=== PATIENT | female | born 2000 | race Caucasian/White ===

== ENCOUNTER 2025-03-25 10:44 | Emergency (ER) | payer OTHER, SELFPAY ==
[2025-03-25] VITALS (9 sets, daily range): BP systolic 124–140; BP diastolic 65–95; PULSE 77–100; RESP 14–24; TEMP 36.7–36.9; O2SAT 94–100
--- NOTE | ~2025-03-25 | XR_ITS ---
EXAMINATION: XR chest 1V portable COMPARISON: No comparisons available. HISTORY: drug overdose FINDINGS: The lungs are clear, no effusion. No pneumothorax. Heart is normal size. Mediastinal and hilar contours are within normal limits. Bony thorax no acute abnormality. Miscellaneous: None Impression: No acute cardiopulmonary abnormality. Reviewed, dictated and finalized at location A. Impression: No acute cardiopulmonary abnormality.
--- NOTE | 2025-03-25 10:48 | PC.NURSE ---
DENA Ji, at Poison Control contacted regarding intentional overdose. Patient took 900mg effexor xr last noc at 1800. Poison Control relayed the following information: -Patient may experience n/v, headache, fatigue, tremor, tachycardia, hypertension, seizures, AMS, agitation. -If patient is being honest about the amount and time ingested: peak would have been at 9 hours and patient would be expected to experience mild/moderate symptoms. -Suggest to perform EKG, place patient on retread builder, obtain basic labs with added tylenol/salicylate levels. -Margy to fax over information re: management of patient.
--- NOTE | 2025-03-25 10:56 | ED_ITS ---
HPI - General Adult General Chief complaint: Overdose <Hayden Vazquez MD - Last Filed: 03/25/25 18:29> Stated complaint: intentional OD <Hayden Vazquez MD - Last Filed: 03/25/25 18:29> Source: patient <Hayden Vazquez MD - Last Filed: 03/25/25 18:29> Mode of arrival: ambulatory <Hayden Vazquez MD - Last Filed: 03/25/25 18:29> Limitations: no limitations <Hayden Vazquez MD - Last Filed: 03/25/25 18:29> History of Present Illness HPI narrative: 24 years old white female came to the ED telling me that she had 6 tablet of Effexor 150 mg each at 6:00 p.m. last night. Patient was trying to in call herself, because she feels like a failure, and burden on everybody around her. Currently patient live with judi simmons, was hospitalized for suicidal ideation and depression at [facility] 2020, history of anxiety and depression, currently on testosterone, not on antidepression or antipsychotic medication. Patient currently denying any fever, chills, nausea, vomiting, abdominal pain, chest pain, shortness of breath or any other complain except feeling depressed < Hayden Vazquez MD - Last Filed: 03/25/25 18:29> Related Data Allergies/adverse reactions: Allergies Allergy/AdvReac Type Severity Reaction Status Date / Time No Known Allergies Allergy Verified 03/25/25 11:01 <Hayden Vazquez MD - Last Filed: 03/25/25 18:29> Review of Systems 2 Review of Systems: All systems reviewed & are unremarkable except as noted in HPI and below <Hayden Vazquez MD - Last Filed: 03/25/25 18:29> PMFSH Social History Social History: Social History Substance use type: marijuana <Hayden Vazquez MD - Last Filed: 03/25/25 18:29> Exam 2 Narrative: General appearance: Well-developed, well-nourished Skin: Normal color hirsutism, mostach and guardado Head: Normocephalic, nontraumatic Eyes: Clear conjunctiva, dilated pupils, reactive light and accommodation ENT: Oropharynx normal, ears normal, nose normal Neck: Supple, nontender Chest and respiratory: Airway patent, no respiratory distress, no accessory muscle use Heart: Regular rate/rhythm Abdomen: Soft, nontender, no organomegaly, quiet bowel sounds Vascular: Normal peripheral pulses, normal capillary refill. Musculoskeletal: Normal range of motion, nontender back Neurologic: Alert and oriented ?3, COMPENSATION AND BENEFITS ANALYST is normal as tested, no gross motor deficit <Hayden Vazquez MD - Last Filed: 03/25/25 18:29> Course Vital Signs Vital signs: Vital Signs Temperature 98.0 F 03/25/25 10:45 Pulse Rate 98 03/25/25 10:45 Respiratory Rate 20 03/25/25 10:45 Blood Pressure 132/95 H 03/25/25 10:45 Pulse Oximetry 98 03/25/25 10:45 Oxygen Delivery Room Air 03/25/25 10:45 Temperature 98.4 F 03/25/25 20:21 Pulse Rate 77 03/25/25 20:21 Respiratory Rate 14 03/25/25 20:21 Blood Pressure 140/65 03/25/25 20:21 Pulse Oximetry 100 03/25/25 20:21 Oxygen Delivery Room Air 03/25/25 10:57 <Hayden Vazquez MD - Last Filed: 03/25/25 18:29> Vital Signs Temperature 98.0 F 03/25/25 10:45 Pulse Rate 98 03/25/25 10:45 Respiratory Rate 20 03/25/25 10:45 Blood Pressure 132/95 H 03/25/25 10:45 Pulse Oximetry 98 03/25/25 10:45 Oxygen Delivery Room Air 03/25/25 10:45 Temperature 98.4 F 03/25/25 20:21 Pulse Rate 77 03/25/25 20:21 Respiratory Rate 14 03/25/25 20:21 Blood Pressure 140/65 03/25/25 20:21 Pulse Oximetry 100 03/25/25 20:21 Oxygen Delivery Room Air 03/25/25 10:57 <Paul Mcguire MD - Last Filed: 03/25/25 20:26> Medical Decision Making MDM Narrative Medical decision making narrative: 24 years old white female came to the ED with drug overdose, suicidal attempt Vital signs are stable Physical examination: Depressed looking patient Differential diagnosis major depression with suicidal ideation and attempt, serotonin syndrome Workup today showed hemoglobin of 16.9 otherwise insignificant abnormalities Urine drug screen positive for cannabis Urinalysis showed insignificant abnormality Chest x-ray showed no acute abnormality EKG on arrival showed normal sinus rhythm Diagnosis major depression with drug overdose Patient care turned over to Dr. Peterson at shift change, awaiting for disposition. Patient been resting quietly in the emergency room without any issues or problems. <Hayden Vazquez MD - Last Filed: 03/25/25 18:29> Differential Diagnosis Differential Diagnosis: as above <Hayden Vazquez MD - Last Filed: 03/25/25 18:29> Medical Records Medical records narrative: patient is medically cleared for psych eval <Hayden Vazquez MD - Last Filed: 03/25/25 18:29> Vital Signs Vital Signs: Vital Signs Temperature 98.0 F 03/25/25 10:45 Pulse Rate 98 03/25/25 10:45 Respiratory Rate 20 03/25/25 10:45 Blood Pressure 132/95 H 03/25/25 10:45 Pulse Oximetry 98 03/25/25 10:45 Oxygen Delivery Room Air 03/25/25 10:45 Temperature 98.4 F 03/25/25 20:21 Pulse Rate 77 03/25/25 20:21 Respiratory Rate 14 03/25/25 20:21 Blood Pressure 140/65 03/25/25 20:21 Pulse Oximetry 100 03/25/25 20:21 Oxygen Delivery Room Air 03/25/25 10:57 <Hayden Vazquez MD - Last Filed: 03/25/25 18:29> Vital Signs Temperature 98.0 F 03/25/25 10:45 Pulse Rate 98 03/25/25 10:45 Respiratory Rate 20 03/25/25 10:45 Blood Pressure 132/95 H 03/25/25 10:45 Pulse Oximetry 98 03/25/25 10:45 Oxygen Delivery Room Air 03/25/25 10:45 Temperature 98.4 F 03/25/25 20:21 Pulse Rate 77 03/25/25 20:21 Respiratory Rate 14 03/25/25 20:21 Blood Pressure 140/65 03/25/25 20:21 Pulse Oximetry 100 03/25/25 20:21 Oxygen Delivery Room Air 03/25/25 10:57 <Paul Mcguire MD - Last Filed: 03/25/25 20:26> Lab Data Result diagrams: 03/25/25 11:14 03/25/25 11:14 <Hayden Vazquez MD - Last Filed: 03/25/25 18:29> Labs: Lab Results 03/25/25 03/25/25 03/25/25 Range/Units 11:14 12:52 12:53 WBC 10.4 H (4.5-10.0) K/mm3 RBC 5.53 H (4.2-5.4) M/mm3 Hgb 16.9 H (12.0-15.0) g/dL Hct 50.3 H (37.0-47.0) % MCV 91.0 (80-100) fl MCH 30.6 (26-34) pg MCHC 33.6 (32-36) g/dl RDW 15.4 H (11.5-14.5) % Plt Count 403 H (150-375) k/mm3 MPV 8.3 (7.4-10.4) fl Immature Gran % (Auto) 0.3 (0-0.5) % Neut % (Auto) 70.6 (45.5-73.1) % Lymph % (Auto) 18.8 (18.3-44.2) % [place] % (Auto) 6.6 (2.6-8.5) % Eos % (Auto) 2.9 (0-4.4) % Baso % (Auto) 0.8 (0.2-1.2) % Lymph # (Auto) 1.96 (0.9-3.2) K/mm3 [place] # (Auto) 0.7 H (0.1-0.6) K/mm3 Eos # (Auto) 0.3 (0-0.3) K/mm3 Baso # (Auto) 0.1 (0.0-0.1) K/mm3 Abs Immat Gran (auto) 0.03 (0.00-0.031) K/mm3 Absolute Neuts (auto) 7.4 H (1.3-6.7) K/mm3 Absolute Nucleated RBC 0.000 (0.0-0.012) K/mm3 Nucleated RBC % 0.0 (0.0-0.2) % PT 16.2 H (11.1-14.7) Seconds INR 1.3 APTT 22.7 (22.3-36.8) Seconds Sodium 136 L (137-145) mmol/L Potassium 4.1 (3.4-5.0) mmol/L Chloride 102 (98-107) mmol/L Carbon Dioxide 21 L (22-30) mmol/L Anion Gap 13 H (4-12) mmol/L BUN 8 (7-17) mg/dL Creatinine 0.83 (0.7-1.0) mg/dL Estim Creat Clear Calc 92 ml/min Estimated GFR > 60 (59 - ) Glucose 83 (65-110) mg/dL Calcium 8.8 (8.4-10.2) mg/dL Phosphorus 3.0 (2.5-4.5) mg/dL Magnesium 2.0 (1.6-2.3) mg/dL Total Bilirubin 0.8 (0.2-1.3) mg/dL AST 56 H (14-36) U/L ALT 57 H (6-35) U/L Alkaline Phosphatase 110 (38-126) U/L Total Protein 8.6 H (6.3-8.2) g/dL Albumin 4.5 (3.5-5.1) g/dL TSH 1.870 (0.465-4.680) uIU/mL Urine Color Yellow (Yellow) Urine Appearance Clear (Clear) Urine pH 8.0 (5.0-9.0) Ur Specific [place] 1.024 (1.001-1.035) Urine Protein 1+ H (Negative) mg/dL Urine Glucose (UA) Negative (Negative) mg/dL Urine Ketones 1+ H (Negative) mg/dL Ur Blood (Man) Negative (Negative) Urine Nitrate Negative (Negative) Urine Bilirubin Negative (Negative) Urine Urobilinogen 2.0 H (<2.0) mg/dL Add Ur Microanalysis Reviewed Leukocyte Esterase Rfl Trace H (Negative) CYRUS/UL Urine RBC 6-10 H (0-2) /hpf Urine WBC 0-5 (0-3) /hpf Ur Squamous Epith Cells Occasional (Few) /hpf Urine Bacteria None seen /hpf Urine Casts 0-2 POC Urine HCG, Qual Negative (Negative) Salicylates < 1.0 L (2-20) mg/dL Urine Opiates Screen Negative (Negative) Urine Methadone Screen Negative (Negative) Acetaminophen < 10 L (10-30) ug/mL Ur Barbiturates Screen Negative (Negative) Ur Phencyclidine Scrn Negative (Negative) Ur Amphetamine Screen Negative (Negative) U Benzodiazepines Scrn Negative (Negative) Urine Cocaine Screen Negative (Negative) U Cannabinoids Screen Positive A (Negative) Ethyl Alcohol < 10 (<10) mg/dL SARS-CoV-2 RNA (RT-PCR) Negative (Negative) <Hayden Vazquez MD - Last Filed: 03/25/25 18:29> Lab Results 03/25/25 03/25/25 03/25/25 Range/Units 11:14 12:52 12:53 WBC 10.4 H (4.5-10.0) K/mm3 RBC 5.53 H (4.2-5.4) M/mm3 Hgb 16.9 H (12.0-15.0) g/dL Hct 50.3 H (37.0-47.0) % MCV 91.0 (80-100) fl MCH 30.6 (26-34) pg MCHC 33.6 (32-36) g/dl RDW 15.4 H (11.5-14.5) % Plt Count 403 H (150-375) k/mm3 MPV 8.3 (7.4-10.4) fl Immature Gran % (Auto) 0.3 (0-0.5) % Neut % (Auto) 70.6 (45.5-73.1) % Lymph % (Auto) 18.8 (18.3-44.2) % [place] % (Auto) 6.6 (2.6-8.5) % Eos % (Auto) 2.9 (0-4.4) % Baso % (Auto) 0.8 (0.2-1.2) % Lymph # (Auto) 1.96 (0.9-3.2) K/mm3 [place] # (Auto) 0.7 H (0.1-0.6) K/mm3 Eos # (Auto) 0.3 (0-0.3) K/mm3 Baso # (Auto) 0.1 (0.0-0.1) K/mm3 Abs Immat Gran (auto) 0.03 (0.00-0.031) K/mm3 Absolute Neuts (auto) 7.4 H (1.3-6.7) K/mm3 Absolute Nucleated RBC 0.000 (0.0-0.012) K/mm3 Nucleated RBC % 0.0 (0.0-0.2) % PT 16.2 H (11.1-14.7) Seconds INR 1.3 APTT 22.7 (22.3-36.8) Seconds Sodium 136 L (137-145) mmol/L Potassium 4.1 (3.4-5.0) mmol/L Chloride 102 (98-107) mmol/L Carbon Dioxide 21 L (22-30) mmol/L Anion Gap 13 H (4-12) mmol/L BUN 8 (7-17) mg/dL Creatinine 0.83 (0.7-1.0) mg/dL Estim Creat Clear Calc 92 ml/min Estimated GFR > 60 (59 - ) Glucose 83 (65-110) mg/dL Calcium 8.8 (8.4-10.2) mg/dL Phosphorus 3.0 (2.5-4.5) mg/dL Magnesium 2.0 (1.6-2.3) mg/dL Total Bilirubin 0.8 (0.2-1.3) mg/dL AST 56 H (14-36) U/L ALT 57 H (6-35) U/L Alkaline Phosphatase 110 (38-126) U/L Total Protein 8.6 H (6.3-8.2) g/dL Albumin 4.5 (3.5-5.1) g/dL TSH 1.870 (0.465-4.680) uIU/mL Urine Color Yellow (Yellow) Urine Appearance Clear (Clear) Urine pH 8.0 (5.0-9.0) Ur Specific [place] 1.024 (1.001-1.035) Urine Protein 1+ H (Negative) mg/dL Urine Glucose (UA) Negative (Negative) mg/dL Urine Ketones 1+ H (Negative) mg/dL Ur Blood (Man) Negative (Negative) Urine Nitrate Negative (Negative) Urine Bilirubin Negative (Negative) Urine Urobilinogen 2.0 H (<2.0) mg/dL Add Ur Microanalysis Reviewed Leukocyte Esterase Rfl Trace H (Negative) CYRUS/UL Urine RBC 6-10 H (0-2) /hpf Urine WBC 0-5 (0-3) /hpf Ur Squamous Epith Cells Occasional (Few) /hpf Urine Bacteria None seen /hpf Urine Casts 0-2 POC Urine HCG, Qual Negative (Negative) Salicylates < 1.0 L (2-20) mg/dL Urine Opiates Screen Negative (Negative) Urine Methadone Screen Negative (Negative) Acetaminophen < 10 L (10-30) ug/mL Ur Barbiturates Screen Negative (Negative) Ur Phencyclidine Scrn Negative (Negative) Ur Amphetamine Screen Negative (Negative) U Benzodiazepines Scrn Negative (Negative) Urine Cocaine Screen Negative (Negative) U Cannabinoids Screen Positive A (Negative) Ethyl Alcohol < 10 (<10) mg/dL SARS-CoV-2 RNA (RT-PCR) Negative (Negative) <Paul Mcguire MD - Last Filed: 03/25/25 20:26> ABG Data ABG results: 03/25/25 11:12 Puncture Site Right radial ABG pH 7.410 ABG pCO2 36.8 ABG pO2 90.0 ABG PO2/FiO2 Ratio 4.29 ABG HCO3 22.8 ABG O2 Saturation 97.0 ABG O2 Content 23.7 H ABG Base Excess -1.3 A-a Gradient 15.7 Oxyhemoglobin 96.7 Total Hemoglobin 17.4 O2 Delivery Device Room air O2 Liters/Min Not Reportable FiO2 21 <Hayden Vazquez MD - Last Filed: 03/25/25 18:29> 03/25/25 11:12 Puncture Site Right radial ABG pH 7.410 ABG pCO2 36.8 ABG pO2 90.0 ABG PO2/FiO2 Ratio 4.29 ABG HCO3 22.8 ABG O2 Saturation 97.0 ABG O2 Content 23.7 H ABG Base Excess -1.3 A-a Gradient 15.7 Oxyhemoglobin 96.7 Total Hemoglobin 17.4 O2 Delivery Device Room air O2 Liters/Min Not Reportable FiO2 21 <Paul Mcguire MD - Last Filed: 03/25/25 20:26> Imaging Data Radiologist's impression: Impressions Chest X-Ray 03/25/25 11:20 Impression: No acute cardiopulmonary abnormality. <Hayden Vazquez MD - Last Filed: 03/25/25 18:29> ECG Data EKG #1: Attestation: I personally reviewed and interpreted this ECG as follows: <Hayden Vazquez MD - Last Filed: 03/25/25 18:29> ECG completion date: 03/25/25 <Hayden Vazquez MD - Last Filed: 03/25/25 18:29> Interpretation: Normal sinus rhythm, normal EKG. No previous EKG available for comparison <Hayden Vazquez MD - Last Filed: 03/25/25 18:29> Medical Decision Making MDM Documentation: Patient signed out pending psychiatric placement. Patient accepted a [facility]. Patient transferred in a stable condition. < Paul Mcguire MD - Last Filed: 03/25/25 20:26> Critical Care Time Critical Care Time Critical Care Time: No <Hayden Vazquez MD - Last Filed: 03/25/25 18:29> Discharge Plan Discharge Clinical Impression: Major depression Qualifiers: Major depression recurrence: unspecified whether recurrent Active/Remission status: currently active Major depression episode severity: severe Psychotic features: without psychotic features Qualified Code(s): F32.2 - Major depressive disorder, single episode, severe without psychotic features Drug overdose Qualifiers: Encounter type: initial encounter Injury intent: intentional self-harm Q ualified Code(s): T50.902A - Poisoning by unspecified drugs, medicaments and biological substances, intentional self-harm, initial encounter <Hayden Vazquez MD - Last Filed: 03/25/25 18:29> Patient Disposition: Psychiatric Hosp <Hayden Vazquez MD - Last Filed: 03/25/25 18:29> Condition: Stable <Hayden Vazquez MD - Last Filed: 03/25/25 18:29> Patient Language: Albanian <Hayden Vazquez MD - Last Filed: 03/25/25 18:29> Follow-up/Referrals: Kaitlyn Moeller MD [Physician, Family Practice] <Hayden Vazquez MD - Last Filed: 03/25/25 18:29>
--- NOTE | 2025-03-25 10:58 | ECG_ITS ---
Test Date: 2025-03-25 10:53:35 Measurements Intervals [place] Rate: 87 P: 26 MS: 151 QRS: 26 QRSD: 87 T: 31 QT: 357 QTc: 431 Interpretive Statements SINUS RHYTHM NORMAL ECG No previous ECG available for comparison Electronically Signed On 03-25-2025 12:10:19 CDT by Olvin Luevano M.D.
[2025-03-25 11:22] LABS: Alveolar/Arterial O2 Gradient 15.7 mmHg; Fractional Inspired Oxygen 21 %; HCO3 ABG 22.8 mEq/l (22.0-26.0); Oxygen Content ABG 23.7 %vol (16.0-22.0); Oxygen Saturation ABG 97.0 % (95.0-100.0); PCO2 ABG 36.8 mmHg (35.0-45.0); PO2 ABG 90.0 mmHg (80.0-100.0); PO2 FiO2 Ratio Arterial Blood 4.29 %
[2025-03-25 11:23] LABS: Modified Allen's Test Pass; Site Drawn RIGHT RADIAL
[2025-03-25 11:32] LABS: Hematocrit 50.3 % (37.0-47.0); Hemoglobin 16.9 g/dL (12.0-15.0); Immature Granulocyte Percent A 0.3 % (0-0.5); Lymphocytes Absolute Auto 1.96 K/mm3 (0.9-3.2); Mean Corpuscular HGB Conc 33.6 g/dl (32-36); Mean Corpuscular Hemoglobin 30.6 pg (26-34); Mean Corpuscular Volume 91.0 fl (80-100); Nucleated Red Blood Cells Absolute Auto 0.000 K/mm3 (0.0-0.012); Nucleated Red Blood Cells Perc 0.0 % (0.0-0.2); Platelet Count Result 403 k/mm3 (150-375); Red Blood Count 5.53 M/mm3 (4.2-5.4); White Blood Count 10.4 K/mm3 (4.5-10.0)
[2025-03-25] MEDS: SODIUM CHLORIDE 0.9% IV 1,000 ML 999 ML IV CONT (11:32)
--- NOTE | 2025-03-25 11:35 | PC.NURSE ---
Pt attempted to provide urine sample but was unable to go
[2025-03-25 11:41] LABS: Acetaminophen < 10 ug/mL (10-30); Salicylate < 1.0 mg/dL (2-20)
[2025-03-25 11:44] LABS: Alanine Aminotransferase 57 U/L (6-35); Albumin Level 4.5 g/dL (3.5-5.1); Alkaline Phosphatase 110 U/L (38-126); Anion Gap 13 mmol/L (4-12); Aspartate Amino Transferase 56 U/L (14-36); Bilirubin,Total 0.8 mg/dL (0.2-1.3); Blood Urea Nitrogen 8 mg/dL (7-17); Calcium 8.8 mg/dL (8.4-10.2); Carbon Dioxide 21 mmol/L (22-30); Chloride 102 mmol/L (98-107); Estimated CRCL calculation 92 ml/min; Estimated Glomerular Filt Rate > 60; Glucose 83 mg/dL (65-110); INR 1.3; Magnesium 2.0 mg/dL (1.6-2.3); Potassium 4.1 mmol/L (3.4-5.0); Prothrombin Time 16.2 Seconds (11.1-14.7); Sodium 136 mmol/L (137-145); Total Protein 8.6 g/dL (6.3-8.2)
[2025-03-25 11:46] LABS: Partial Thromboplastin Time 22.7 Seconds (22.3-36.8)
[2025-03-25 12:08] LABS: SARS-CoV-2 RNA PCR Negative (Negative)
[2025-03-25 12:28] LABS: Thyroid Stimulating Hormone 1.870 uIU/mL (0.465-4.680)
[2025-03-25 12:55] LABS: BEDSIDEPREGUCG Negative (Negative)
[2025-03-25 13:15] LABS: Add Urine Microscopic? YES; Appearance Urine Clear (Clear); Glucose Urine UA Negative (Negative); Leukocyte Esterase Ur Trace LEU/UL (Negative); Need Manual Microscopic Reviewed; Nitrate Urine Negative (Negative); Non Pathogenic Casts 0-2; Specific Grav Ur 1.024 (1.001-1.035)
[2025-03-25 13:19] LABS: Cannabinoid Screen Urine Positive (Negative)
--- NOTE | 2025-03-25 13:40 | PC.NURSE ---
Poison control called for update. No new recommendations at this time.
== END 2025-03-25 20:40 ==
PROVIDERS: Emergency Provider Emergency Medicine
DX: T43.212A Poisoning by selective serotonin and norepinephrine reuptake inhibitors, intentional self-harm, initial encounter (principal); F32.2 Major depressive disorder, single episode, severe without psychotic features; Z11.52 Encounter for screening for COVID-19; F64.0 Transsexualism; Z79.890 Hormone replacement therapy
CPT/HCPCS: 36415; 36600; 71045; 80053; 80143; 80179; 80307; 81001; 81025; 82077; 82805; 83735; 84100; 84443; 85018; 85025; 85610; 85730; 87635; 93005; 96360; 99285; J7030